=== PATIENT | female | born 1985 | race Hispanic/Latino ===

== ENCOUNTER 2021-08-22 19:52 | Observation (INO) | payer BC, MEDICAID, OTHER ==
[~2021-08-22] VITALS: Ht 152.4 cm; Wt 99.7 kg
[2021-08-22] MEDS ORDERED: TETANUS/DIPHTHERIA TOXOID [ADULT] 0.5 ML VIAL IM ONE (21:00)
[2021-08-22] MEDS ORDERED: ACETAMINOPHEN 500 MG TABLET PO ONE (21:00)
[2021-08-22] MEDS ORDERED: 0.9%NACL 1000ML 1,000 ML IV ONE ×2 (22:19→23:30)
[2021-08-22] MEDS ORDERED: KETOROLAC 15MG/ML VIAL (15MG/ML) ONE (22:19)
[2021-08-22 22:20] LABS: BASOPHILS % (AUTO) 0.6 % (0.0-5.0); EOSINOPHILS % (AUTO) 0.3 % (0.0-8.0); HEMATOCRIT 36.3 % (36-48); MEAN CORPUSCULAR HEMOGLOBIN 25.2 pg (27.0-33.0); MEAN CORPUSCULAR HGB CONC 32.2 g/dL (32.0-36.0); MEAN CORPUSCULAR VOLUME 78.1 fL (79-99); MONOCYTES % (AUTO) 6.3 % (3.0-13.0); NEUTROPHILS % (AUTO) 81.3 % (40.0-77.0); PLATELET COUNT (AUTO) 298 K/uL (130-400); RED BLOOD CELL COUNT(AUTO) 4.65 MIL/uL (4.00-5.50); RED CELL DISTRIBUTION WIDTH 15.9 % (11.0-15.5); WHITE BLOOD COUNT (AUTO) 20.2 K/uL (4.8-10.8)
[2021-08-22] MEDS ORDERED: KETOROLAC 15MG/ML VIAL (15MG/ML) IV ONE (22:30)
[2021-08-22] MEDS ORDERED: 0.9%NACL 1000ML 1,000 ML IV SCH (22:30)
[2021-08-22 22:40] LABS: CREATININE 0.8 mg/dL (0.5-1.5)
[2021-08-22 22:46] LABS: ALBUMIN 3.5 g/dL (3.5-5.0); BILIRUBIN,TOTAL 0.2 mg/dL (0.2-1.0); TOTAL PROTEIN, SERUM 7.3 g/dL (6.0-8.3)
[2021-08-22 23:23] LABS: APPEARANCE,URINE CLEAR (CLEAR); BILIRUBIN,URINE NEGATIVE (NEGATIVE); COLOR,URINE YELLOW (YELLOW); GLUCOSE, URINE (UA) NEGATIVE (NEGATIVE); KETONES,URINE NEGATIVE (NEGATIVE); LEUKOCYTE ESTERASE ,URINE NEGATIVE (NEGATIVE); NITRATE,URINE NEGATIVE (NEGATIVE); OCCULT BLOOD,URINE TRACE-INTACT (NEGATIVE); PROTEIN,URINE NEGATIVE (NEGATIVE); UROBILINOGEN,URINE 0.2 mg/dL (0.2-1.0)
[2021-08-22] MEDS ORDERED: MORPHINE 4 MG SYG IVP ONE (23:30)
[2021-08-22 23:31] LABS: BACTERIA,URINE None Seen /HPF (None Seen); RBC,URINE 0-1 /HPF (0-1); WBC,URINE None Seen /HPF (0-1)
[2021-08-22 23:32] LABS: SQUAMOUS EPITHELIAL CELL,UR Few /HPF (0-2)
[2021-08-22 23:41] LABS: HCG,QUAL RESULT NEGATIVE (NEGATIVE)
[2021-08-23] MEDS: CEFAZOLIN SODIUM 1 GM VIAL IVP SCH ×3 (01:00→17:23)
[2021-08-23] MEDS ORDERED: LEVOFLOXACIN 500 MG/D5W 100 ML 100 ML IV SCH (01:00)
[2021-08-23] MEDS: DOXYCYCLINE 100MG+NS 250ML IV SCH ×2 (01:00→13:47)
[2021-08-23] MEDS ORDERED: ONDANSETRON 4MG INJ IV PRN (01:30)
[2021-08-23] MEDS ORDERED: NITROGLYCERIN 0.4 MG SL TAB SL PRN (01:30)
[2021-08-23] MEDS ORDERED: ACETAMINOPHEN 325 MG TAB PO PRN ×2 (01:30)
[2021-08-23] MEDS ORDERED: HYDROCODONE/ACETAMINOPHEN 5/325 MG TAB PO PRN (01:30)
[2021-08-23 02:03] LABS: AMPHET/METH SCREEN,URINE NEGATIVE (NEGATIVE); BARBITURATE SCREEN, URINE NEGATIVE (NEGATIVE); BENZODIAZEPINES SCREEN,URINE NEGATIVE (NEGATIVE); CANNABINOID SCREEN,URINE NEGATIVE (NEGATIVE); COCAINE SCREEN,URINE NEGATIVE (NEGATIVE); OPIATE SCREEN,URINE NEGATIVE (NEGATIVE); PHENCYCLIDINE SCREEN,URINE NEGATIVE (NEGATIVE)
[2021-08-23] MEDS: 0.9%NACL 1000ML 1,000 ML IV SCH ×3 (03:22→20:54)
[2021-08-23 04:40] VITALS: BP 104/59
[2021-08-23] MEDS: HYDROCODONE/ACETAMINOPHEN 5/325 MG TAB PO PRN ×2 (05:12→10:55)
[2021-08-23 06:45] LABS: HEMATOCRIT 32.9 % (36-48)
[2021-08-23 06:57] LABS: INR 1.04 (0.85-1.15); PROTHROMBIN TIME 11.3 SEC (9.6-11.6)
[2021-08-23 06:58] LABS: PARTIAL THROMBOPLASTIN TIME 29.4 SEC (26.3-35.5)
[2021-08-23 08:46] VITALS: BP 122/66
[2021-08-23] MEDS: FAMOTIDINE 20MG TAB PO SCH ×2 (10:59→20:54)
[2021-08-23 12:27] VITALS: BP 112/60
[2021-08-23] MEDS ORDERED: HYDROMORPHONE 1 MG INJ IVP PRN (15:00)
[2021-08-23 16:32] VITALS: BP 125/75
[2021-08-23 19:25] VITALS: BP 122/50
[2021-08-23 23:17] VITALS: BP 145/77
[2021-08-24] MEDS: CEFAZOLIN SODIUM 1 GM VIAL IVP SCH ×2 (01:34→09:09)
[2021-08-24] MEDS: DOXYCYCLINE 100MG+NS 250ML IV SCH (01:34)
[2021-08-24 04:12] VITALS: BP 120/63
[2021-08-24 05:26] LABS: BASOPHILS % (AUTO) 1.2 % (0.0-5.0); EOSINOPHILS % (AUTO) 3.5 % (0.0-8.0); HEMATOCRIT 33.1 % (36-48); LYMPHOCYTES % (AUTO) 23.3 % (21.0-51.0); MEAN CORPUSCULAR HEMOGLOBIN 25.2 pg (27.0-33.0); MEAN CORPUSCULAR HGB CONC 31.7 g/dL (32.0-36.0); MEAN CORPUSCULAR VOLUME 79.6 fL (79-99); MONOCYTES % (AUTO) 7.6 % (3.0-13.0); PLATELET COUNT (AUTO) 302 K/uL (130-400); RED BLOOD CELL COUNT(AUTO) 4.16 MIL/uL (4.00-5.50); RED CELL DISTRIBUTION WIDTH 15.8 % (11.0-15.5); WHITE BLOOD COUNT (AUTO) 9.5 K/uL (4.8-10.8)
[2021-08-24 05:59] LABS: ALBUMIN 2.7 g/dL (3.5-5.0); BILIRUBIN,TOTAL 0.1 mg/dL (0.2-1.0); MAGNESIUM 1.5 mg/dL (1.80-2.40); POTASSIUM 3.8 mmol/L (3.5-5.1); TOTAL PROTEIN, SERUM 5.9 g/dL (6.0-8.3)
[2021-08-24 07:26] VITALS: BP 139/79
[2021-08-24] MEDS: FAMOTIDINE 20MG TAB PO SCH (09:10)
[2021-08-24] MEDS ORDERED: DOXY100T2 PO (09:44)
[2021-08-24] MEDS ORDERED: CEPH500C2 PO (09:44)
[2021-08-24] MEDS ORDERED: MAGNESIUM 2GM PREMIX 50ML 50 ML IV PRN (10:00)
== END 2021-08-24 13:00 | disposition home or self-care (01) ==
LOC: EDH 19:52 → EDHIP 19:53 → 3BH 08-23 04:53
PROVIDERS: ADMIT Hospitalist; ATTEND Hospitalist
DX: S01.01XA Laceration without foreign body of scalp, initial encounter (principal); Z20.822 Contact with and (suspected) exposure to COVID-19; S61.411A Laceration without foreign body of right hand, initial encounter; S80.11XA Contusion of right lower leg, initial encounter; S70.11XA Contusion of right thigh, initial encounter; D72.829 Elevated white blood cell count, unspecified; E66.01 Morbid (severe) obesity due to excess calories; F17.210 Nicotine dependence, cigarettes, uncomplicated; V92.09XA Drowning and submersion due to fall off unspecified watercraft, initial encounter; Y93.89 Activity, other specified; Y92.89 Other specified places as the place of occurrence of the external cause; Z68.41 Body mass index [BMI] 40.0-44.9, adult; Z23 Encounter for immunization
CPT/HCPCS: 12002; 36415 ×3; 70450 ×2; 71045; 71046; 72125; 72192; 73700; 80053 ×2; 80305; 81001; 81025; 82550 ×2; 83735; 85014; 85018; 85025 ×2; 85610; 85730; 87635; 90471; 90714; 93005; 96361 ×2; 96365; 96366 ×2; 96375 ×2; 96376 ×2; 99285; C9803; G0378 ×35; J0690 ×5; J1170; J1885; J2270; J3490 ×3; J7030 ×3

== ENCOUNTER 2021-10-08 21:07 | Emergency (ER) | payer BC ==
[~2021-10-08] VITALS: Ht 152.4 cm; Wt 97.5 kg
[~2021-10-08 21:07] MED LIST: CEPH500C2 PO; DOXY100T2 PO
[2021-10-08 21:26] LABS: BASOPHILS % (AUTO) 1.2 % (0.0-5.0); EOSINOPHILS % (AUTO) 3.4 % (0.0-8.0); HEMATOCRIT 37.2 % (36-48); LYMPHOCYTES % (AUTO) 26.4 % (21.0-51.0); MEAN CORPUSCULAR HEMOGLOBIN 25.3 pg (27.0-33.0); MEAN CORPUSCULAR HGB CONC 32.5 g/dL (32.0-36.0); MEAN CORPUSCULAR VOLUME 77.8 fL (79-99); MONOCYTES % (AUTO) 7.5 % (3.0-13.0); NEUTROPHILS % (AUTO) 61.2 % (40.0-77.0); PLATELET COUNT (AUTO) 327 K/uL (130-400); RED BLOOD CELL COUNT(AUTO) 4.78 MIL/uL (4.00-5.50); RED CELL DISTRIBUTION WIDTH 16.2 % (11.0-15.5); WHITE BLOOD COUNT (AUTO) 11.3 K/uL (4.8-10.8)
[2021-10-08 21:36] LABS: POTASSIUM 3.8 mmol/L (3.5-5.1)
[2021-10-08 21:43] LABS: ALBUMIN 3.6 g/dL (3.5-5.0); TOTAL PROTEIN, SERUM 7.2 g/dL (6.0-8.3)
[2021-10-08 23:05] LABS: APPEARANCE,URINE CLEAR (CLEAR); BILIRUBIN,URINE NEGATIVE (NEGATIVE); COLOR,URINE YELLOW (YELLOW); GLUCOSE, URINE (UA) NEGATIVE (NEGATIVE); KETONES,URINE NEGATIVE (NEGATIVE); LEUKOCYTE ESTERASE ,URINE MODERATE (NEGATIVE); NITRATE,URINE NEGATIVE (NEGATIVE); OCCULT BLOOD,URINE TRACE-INTACT (NEGATIVE); PROTEIN,URINE NEGATIVE (NEGATIVE); UROBILINOGEN,URINE 0.2 mg/dL (0.2-1.0)
[2021-10-08 23:17] LABS: BACTERIA,URINE Few /HPF (None Seen)
[2021-10-08 23:28] LABS: HCG,QUALITATIVE URINE NEGATIVE (NEGATIVE)
[2021-10-09] MEDS ORDERED: MACR100 PO (00:36)
[2021-10-09] MEDS ORDERED: FAMO-136 PO (00:37)
[2021-10-09 01:00] VITALS: BP 98/51
[2021-10-09] MEDS ORDERED: FAMOTIDINE 20MG VIAL IV ONE (01:00)
[2021-10-09] MEDS ORDERED: NITROFURANTOIN MONOHYD/M-CRYST 100 MG CAPSULE PO ONE (01:00)
== END 2021-10-09 01:03 | disposition home or self-care (01) ==
LOC: EDH 21:12
DX: N30.00 Acute cystitis without hematuria (principal); K21.9 Gastro-esophageal reflux disease without esophagitis; R07.89 Other chest pain; R60.0 Localized edema; F07.81 Postconcussional syndrome
CPT/HCPCS: 99284; 93970; 84484; 80053; 83880; 85025; 85378; 87088; 81001; 81025; 36415; 73552; 93005; 96374; J3490